=== PATIENT | female | born 1970 | race Caucasian/White ===

== ENCOUNTER 2020-03-27 16:19 | Outpatient (CLI) | payer BC, SELFPAY ==
--- NOTE | ~2020-03-27 | XR_ITS ---
EXAMINATION: XR knee RT min 4V DATE: 03/27/2020 16:50 INDICATION: Right knee pain. Fall. TECHNIQUE: 4 views of right knee were obtained. COMPARISON: None. FINDINGS: Bone alignment is normal. No fracture. There is mild osteoarthritis of medial and lateral c ompartments and severe osteoarthritis of patellofemoral compartment. There is a moderate-sized knee j oint effusion. IMPRESSION: 1. Severe right knee osteoarthritis. 2. Moderate-sized right knee joint effusion. 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
--- NOTE | ~2020-03-27 | XR_ITS ---
EXAMINATION: XR shoulder RT min 2V DATE: 03/27/2020 16:51 INDICATION: Right shoulder pain. TECHNIQUE: 4 views of right shoulder were obtained. COMPARISON: None. FINDINGS: Bone alignment is normal. No fracture. There is mild osteoarthritis of glenohumeral joint a nd severe osteoarthritis of acromioclavicular joint. IMPRESSION: 1. Polyarticular osteoarthritis. 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
== END 2020-03-27 16:20 | disposition home or self-care (01) ==
PROVIDERS: PCP Family Medicine; Visit Provider Physician Assistant
DX: M25.511 Pain in right shoulder (principal); M25.561 Pain in right knee; M19.011 Primary osteoarthritis, right shoulder; M17.11 Unilateral primary osteoarthritis, right knee; M25.461 Effusion, right knee
CPT/HCPCS: 73030; 73564

== ENCOUNTER 2020-09-22 15:25 | Outpatient (CLI) | payer BC, SELFPAY ==
--- NOTE | ~2020-09-22 | MM_ITS ---
EXAMINATION: MM screening lois BI w luis HISTORY: Screening TECHNIQUE: Craniocaudal and mediolateral oblique 3-D tomosynthesis images were obtained and synthetic 2-D images were generated. CAD analysis was submitted and interpreted. COMPARISON: No prior mammogram is available for comparison at this institution. BREAST PARENCHYMAL COMPOSITION: There are scattered areas of fibroglandular density. FINDINGS: There is a cluster of nodules in the upper central aspect of the left breast. There is no m ammographic evidence for malignancy in the right breast. IMPRESSION: 1. Cluster of left breast nodules. 2. Additional spot compression and mediolateral views with possible follow-up breast ultrasound recom mended. BI-RADS Category 0: Incomplete: Needs additional imaging evaluation. 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 IMPRESSION: 1. Cluster of left breast nodules. 2. Additional spot compression and mediolateral views with possible follow-up b reast ultrasound recommended. BI-RADS Category 0: Incomplete: Needs additional imaging evaluation.
== END 2020-09-22 15:26 | disposition home or self-care (01) ==
LOC: ANHIMG 15:28
PROVIDERS: PCP Family Medicine; Visit Provider Physician Assistant
DX: Z12.31 Encounter for screening mammogram for malignant neoplasm of breast (principal); R92.8 Other abnormal and inconclusive findings on diagnostic imaging of breast
CPT/HCPCS: 77063; 77067

== ENCOUNTER 2020-10-24 13:38 | Outpatient (CLI) | payer BC, SELFPAY ==
--- NOTE | ~2020-10-24 | MMUS_ITS ---
EXAMINATION: MM diagnostic lois LT w luis, US breast LT complete HISTORY: Follow-up left breast mass TECHNIQUE: Additional 3-D tomosynthesis images of the left breast were performed and synthetic 2-D im ages were generated. CAD analysis was submitted and interpreted. High resolution complete left breast ultrasound was performed. COMPARISON: 09/22/2020 BREAST PARENCHYMAL COMPOSITION: Breast composed of scattered areas of fibroglandular density. FINDINGS: MAMMOGRAPHIC FINDINGS: There is a radiolucent circumscribed 7 mm mass in the upper central aspect of the left breast anterio rly. There are no suspicious calcifications or architectural distortion. ULTRASOUND: Complete left breast ultrasound: At 12:00, 4 cm from the nipple, there is a 6 mm cyst. At 1:00, 3 cm from the nipple, there is a 4 mm cyst. IMPRESSION: 1. No evidence for malignancy in the left breast. Benign cysts. 2. Routine yearly screening mammogram and regular clinical breast examination are recommended. BI-RADS Category 2: Benign finding(s). 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 IMPRESSION: 1. No evidence for malignancy in the left breast. Benign cysts. 2. Routine yearly screening mammogram and regular clinical breast examination a re recommended. BI-RADS Category 2: Benign finding(s).
== END 2020-10-24 13:39 | disposition home or self-care (01) ==
PROVIDERS: PCP Family Medicine; Visit Provider Family Medicine
DX: N63.20 Unspecified lump in the left breast, unspecified quadrant (principal)
CPT/HCPCS: 76641; 77061; 77065; G0279

== ENCOUNTER 2021-08-17 00:30 | Day surgery (SDC) | payer BC, SELFPAY ==
--- NOTE | 2021-07-21 09:01 | SUR.PREOP ---
called patient regarding setting up her prep. Patient stated she didn't want to pay 40 dollars for her prep and wanted a cheaper option. I told the patient there we have cheaper preps she can choose. I discussed with her that the company would reach back out to her. I will follow up with the patient in a week regarding her prep.
[2021-07-30 11:32] VITALS: BMI 30.7
--- NOTE | 2021-08-14 13:48 | P.HP_ITS ---
History of Present Illness History of Present Illness Consent: Risks, benefits, and alternatives have been discussed and questions answered. Patient agrees to proceed with procedure. Chief complaint: neoplasm screening Narrative: Shelbie Chavez is a 51 year old female referred for colon cancer screening Review of Systems Review of Systems: All systems reviewed & are unremarkable except as noted in HPI and below [facility] Social History Social History Smoking packs per day: 0.75 Smoking cigarettes per day: 15.0 Years smoked: 30 Smoking pack-years: 22.50 Smoking status: Current every day smoker Tobacco type: cigarettes Alcohol intake: current Substance use: current Substance use type: marijuana and other Other substance usage details: MARIJUANA-DAILY SMOKES AND GUMMIES WELL CBD Living arrangements: with family Spiritual care concerns: No Meds Home Medications and Allergies Home Medications Medication Instructions Recorded Confirmed Type buspirone 10 mg tablet 10 mg PO TID PRN Anxiety 07/30/21 07/30/21 History fluoxetine 20 mg capsule 1 cap PO DAILY 07/30/21 07/30/21 History multivitamin 1 tablet PO DAILY 07/30/21 07/30/21 History Allergies Allergy/AdvReac Type Severity Reaction Status Date / Time No Known Allergies Allergy Verified 08/17/21 09:42 Exam Resp: Auscultation: clear to auscultation bilaterally Cardio: Rate: regular rate Rhythm: regular rhythm GI: GI Palp: Yes Soft to palpation and No Tenderness to palpation present (GI) Assessment and Plan Assessment and plan (1) Colon cancer screening: Code(s): Z12.11 - Encounter for screening for malignant neoplasm of colon Status: Acute Assessment and Plan: Colonoscopy with possible biopsy or polypectomy or cautery or injection of substances.
[2021-08-17 09:44] VITALS: BP 132/67; PULSE 74; RESP 18; TEMP 36.4; O2SAT 100
[2021-08-17] MEDS: LACTATED RINGERS 1,000 ML 150 ML IV CONT (09:55)
--- NOTE | 2021-08-17 10:23 | P.PNAN_ITS ---
Anes - Initial Pre Proc Eval Procedure: Operation Date: 08/17/21 10:30 Proposed Procedures p Screening Colonoscopy - Audi Li MD Date/Time: 08/17/21 10:23 Surgeon: Audi Li MD Pre Op Diagnosis: neoplasm screening Patient Data Age: 51 Gender: F Height: 1.56 m Weight: 73.8 kg Last Vital Signs Temp 97.5 F L 08/17/21 09:44 Pulse 74 08/17/21 09:44 Resp 18 08/17/21 09:44 BP 132/67 08/17/21 09:44 Pulse Ox 100 08/17/21 09:44 O2 Del Method Room Air 08/17/21 09:44 Allergies Allergy/AdvReac Type Severity Reaction Status Date / Time No Known Allergies Allergy Verified 08/17/21 09:42 Home Medications Medication Instructions Recorded Confirmed Type buspirone 10 mg tablet 10 mg PO TID PRN Anxiety 07/30/21 07/30/21 History fluoxetine 20 mg capsule 1 cap PO DAILY 07/30/21 07/30/21 History multivitamin 1 tablet PO DAILY 07/30/21 07/30/21 History Patient hx anesthesia problems: none Family hx anesthesia problems: none Results Review: All pre-operative results and documents have been reviewed as part of the pre- operative evaluation. [facility] Social History Social History Smoking packs per day: 0.75 Smoking cigarettes per day: 15.0 Years smoked: 30 Smoking pack-years: 22.50 Smoking status: Current every day smoker Tobacco type: cigarettes Alcohol intake: current Substance use: current Substance use type: marijuana and other Other substance usage details: MARIJUANA-DAILY SMOKES AND GUMMIES WE[employer] CBD Living arrangements: with family Spiritual care concerns: No Anes - Eval Final PreProcedure Day of Procedure 08/17/21 10:23 Patient weight: normal Heart: regular rate and rhythm Lungs: clear to auscultation Airway: Mallampati scale class II Neurological: alert and oriented Last oral intake: >/= 8 hours ASA classification: II Emergent: no Anesthetic plan: proceed Anesthesia type and monitoring: general GIVS and standard monitoring Results Review: All pre-operative results and documents have been reviewed as part of the pre- operative evaluation. Informed Consent: The patient's anesthetic plan and its attendant risks and benefits were discussed with the patient/family/POA. Questions were solicited and answers provided to the satisfaction of the patient/family/POA.
[2021-08-17] MEDS: SIMETHICONE ORAL SUSPENSION 20 MG/0.3 ML 30 ML BOTTLE 0.6 ML IRRIGATION (10:39)
[2021-08-17 10:46] VITALS: BP 118/78; PULSE 76; RESP 16; O2SAT 98
[2021-08-17 10:56] VITALS: BP 132/68; PULSE 73; RESP 18; O2SAT 99
[2021-08-17 11:06] VITALS: BP 121/82; PULSE 58; RESP 18; O2SAT 98
== END 2021-08-17 11:13 | disposition home or self-care (01) ==
PROVIDERS: PCP Nurse Practitioner Family; Visit Provider Internal Medicine Gastroenterology
PROC: 0DJD8ZZ Inspection of Lower Intestinal Tract, Via Natural or Artificial Opening Endoscopic (ICD-10-PCS; CPT 45378; principal; 2021-08-17 10:30)
DX: Z12.11 Encounter for screening for malignant neoplasm of colon (principal); K57.30 Diverticulosis of large intestine without perforation or abscess without bleeding; K64.8 Other hemorrhoids; F17.210 Nicotine dependence, cigarettes, uncomplicated; F12.90 Cannabis use, unspecified, uncomplicated
CPT/HCPCS: 45378; J2001; J2704; J7120

== ENCOUNTER 2022-02-24 23:52 | Emergency (ER) | payer BC, SELFPAY ==
--- NOTE | ~2022-02-24 | XR_ITS ---
AP view of the pelvis and AP and lateral views of the right hip Clinical history: Pain Findings: No acute fracture or dislocation is seen. Osseous alignment is anatomic. Bilateral hip and SI joint spaces are preserved. Soft tissues are unremarkable. Impression: No significant abnormality is seen. Reviewed, dictated and finalized at [facility]. 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
[2022-02-25] VITALS: BP 174/91; PULSE 95; RESP 18; TEMP 36.6; O2SAT 97
--- NOTE | 2022-02-25 01:29 | ED.GENADULT ---
HPI - General Adult General Chief complaint: Extremity Injury, Lower Stated complaint: right hip pain Time Seen by Provider: 02/25/22 01:09 History of Present Illness HPI narrative: Ms. Chavez is a 51-year-old female who presented emergency room with complaints of right hip pain. Patient states that she took her dog on a 2 mi walk on Tuesday and noticed some mild right hip pain and took some ibuprofen with relief. Patient states the pain continued to come and go throughout Tuesday and then on Tuesday the pain was mildly worse and she went to yoga and after using a foam ball to release muscle tension in her hip she began having intense pain to her right hip and she states that any kind of movement made the pain worse. Patient states she has been able to ambulate, but sitting on her right hip hurts. Patient was scared that she somehow broke her hip and this was causing the intense pain. Patient denies any trauma or injury to her right hip. Related Data Home Medications Medication Instructions Recorded Confirmed buspirone 10 mg tablet 10 mg PO TID PRN Anxiety 07/30/21 07/30/21 fluoxetine 20 mg capsule 1 cap PO DAILY 07/30/21 07/30/21 multivitamin 1 tablet PO DAILY 07/30/21 07/30/21 Allergies Allergy/AdvReac Type Severity Reaction Status Date / Time No Known Allergies Allergy Verified 08/17/21 09:42 Review of Systems Review of Systems: A 12 point review of systems was completed patient all pertinent positive and negative per HPI the remainder are unremarkable. PMFSH Social History Social History Smoking packs per day: 0.75 Smoking cigarettes per day: 15.0 Years smoked: 30 Smoking pack-years: 22.50 Smoking status: Current every day smoker Tobacco type: cigarettes Alcohol intake: current Substance use: current Substance use type: marijuana and other Other substance usage details: MARIJUANA-DAILY SMOKES AND GUMMIES WELL CBD Spiritual care concerns: No Exam Narrative: Constitutional: Patient is well-nourished in no acute distress. Patient is alert and oriented x3 HEENT: Moist mucous membranes. No scleral icterus. No lymphadenopathy. Neck: No carotid bruits noted no JVD noted Lungs: Lung sounds are clear to auscultation bilaterally. No accessory muscle use. No rhonchi, rales, or wheezes noted. Cardiovascular: Apical pulse is regular rate and rhythm. S1-S2 noted, no S3 or S4 noted. No gallops, murmurs, or rubs noted. Abdomen: Soft, round, and nontender. No palpable masses. Extremities: No edema. patient complains of pain to her right lateral hip as well as her right thigh with any palpation. Patient has decreased active range of motion but full passive range of motion. Skin: No rashes or lesions. Warm and dry. Skin is intact. Neurological: No focal neurological deficits. Cranial nerves II-XII grossly intact. Psychiatric: Cooperative, appropriate mood, and affect Course Course Emergency Course: Patient received IM dose of Toradol with relief and then stated that her hip began hurting again and wanted a muscle relaxant. Explained this was not possible secondary effect the patient drove herself here. Patient verbalized understanding and states that she would be okay with Tylenol and that she would be able to drive home and fill a prescription for her muscle relaxer. Vital Signs Vital signs: Vital Signs Temperature 36.6 C 02/25/22 00:00 Pulse Rate 95 02/25/22 00:00 Respiratory Rate 18 02/25/22 00:00 Blood Pressure 174/91 H 02/25/22 00:00 Pulse Oximetry 97 02/25/22 00:00 Oxygen Delivery Room Air 02/25/22 00:00 Temperature 36.6 C 02/25/22 00:00 Pulse Rate 95 02/25/22 00:00 Respiratory Rate 18 02/25/22 00:00 Blood Pressure 174/91 H 02/25/22 00:00 Pulse Oximetry 97 02/25/22 00:00 Oxygen Delivery Room Air 02/25/22 00:00 Medical Decision Making Differential Diagnosis Diffe
[2022-02-25] MEDS: KETOROLAC 30 MG/ML VIAL (*BKC) IM (01:50)
[2022-02-25 02:30] VITALS: BP 135/74; PULSE 89; RESP 19; O2SAT 99
[2022-02-25] MEDS: ACETAMINOPHEN 500 MG TABLET 1000 MG PO (03:11)
== END 2022-02-25 03:20 | disposition home or self-care (01) ==
PROVIDERS: Emergency Provider Nurse Practitioner Adult Health; PCP Nurse Practitioner Family
DX: S76.011A Strain of muscle, fascia and tendon of right hip, initial encounter (principal); F17.210 Nicotine dependence, cigarettes, uncomplicated; X50.9XXA Other and unspecified overexertion or strenuous movements or postures, initial encounter; Y93.K1 Activity, walking an animal
CPT/HCPCS: 73502; 96372; 99283; A9270; J1885